=== PATIENT | female | born 1965 | race Caucasian/White ===

== ENCOUNTER 2020-05-23 13:54 | Emergency (ER) | payer OTHER ==
[~2020-05-23] VITALS: Ht 160 cm; Wt 81.6 kg
== END 2020-05-23 17:33 | disposition home or self-care (01) ==
LOC: ER 13:54
DX: M54.5 Low back pain (principal); M25.512 Pain in left shoulder

== ENCOUNTER 2021-02-09 15:31 | Emergency (ER) | payer OTHER ==
[~2021-02-09] VITALS: Ht 160 cm; Wt 83.9 kg
== END 2021-02-09 23:20 | disposition home or self-care (01) ==
LOC: ER 15:31
DX: K29.70 Gastritis, unspecified, without bleeding (principal); K52.9 Noninfective gastroenteritis and colitis, unspecified; E86.0 Dehydration

== ENCOUNTER 2021-12-20 07:37 | Emergency (ER) | payer OTHER ==
[~2021-12-20] VITALS: Ht 160 cm; Wt 81.6 kg
== END 2021-12-20 13:53 | disposition home or self-care (01) ==
LOC: ER 07:37
DX: J18.9 Pneumonia, unspecified organism (principal); R31.9 Hematuria, unspecified; N19 Unspecified kidney failure; D72.9 Disorder of white blood cells, unspecified; Z20.822 Contact with and (suspected) exposure to COVID-19

== ENCOUNTER 2022-01-03 13:53 | Emergency (ER) | payer OTHER ==
[~2022-01-03] VITALS: Ht 160 cm; Wt 81.6 kg
[2022-01-03] MEDS ORDERED: SIMETHICONE80 MG PO (14:35)
[2022-01-03] MEDS ORDERED: OSTERA TABLET1 EACH PO (14:35)
== END 2022-01-03 17:40 | disposition home or self-care (01) ==
LOC: ER 13:53
DX: R10.32 Left lower quadrant pain (principal); R31.9 Hematuria, unspecified

== ENCOUNTER 2022-04-05 13:21 | Emergency (ER) | payer OTHER ==
[~2022-04-05] VITALS: Ht 160 cm; Wt 81.6 kg
[~2022-04-05 13:21] MED LIST: OSTERA TABLET1 EACH PO; SIMETHICONE80 MG PO
[2022-04-05] MEDS ORDERED: ZOCOR80 MG PO (13:33)
== END 2022-04-05 18:08 | disposition home or self-care (01) ==
LOC: ER 13:21
DX: J06.9 Acute upper respiratory infection, unspecified (principal)

== ENCOUNTER 2022-06-29 11:37 | Emergency (ER) | payer OTHER ==
[~2022-06-29] VITALS: Ht 160 cm; Wt 81.6 kg
[~2022-06-29 11:37] MED LIST changes: +ZOCOR80 MG PO
== END 2022-06-29 17:18 | disposition home or self-care (01) ==
LOC: ER 11:37
DX: S99.921A Unspecified injury of right foot, initial encounter (principal); X58.XXXA Exposure to other specified factors, initial encounter; Y93.9 Activity, unspecified; Y92.9 Unspecified place or not applicable; Y99.9 Unspecified external cause status; M25.552 Pain in left hip; S79.912A Unspecified injury of left hip, initial encounter

== ENCOUNTER 2024-03-20 11:30 | Emergency (ER) | payer OTHER ==
[~2024-03-20] VITALS: Ht 160 cm; Wt 79.4 kg
[2024-03-20] MEDS ORDERED: 0.9 % SODIUM CHLORIDE 1,000 ML IV STA (12:35)
[2024-03-20] MEDS ORDERED: FAMOtidine 10 MG/ML (4ML VIAL) IV STA (12:38)
[2024-03-20 13:13] LABS: HEMATOCRIT 38.1 % (36.0-45.00); HEMOGLOBIN 12.8 g/dL (12.0-15.00); MEAN CELL VOLUME 86.8 fL (80.00-100.00); MEAN CORPUSCULAR HEMOGLOBIN 29.2 pg (27.00-32.0); MEAN CORPUSCULAR HGB CONC 33.6 g/dl (32.0-36.0); PLATELET COUNT 305 K/uL (150-450); RED BLOOD COUNT 4.39 M/uL (4.00-6.00); RED CELL DISTRIBUTION WIDTH 13.3 % (11.5-14.5)
[2024-03-20 13:37] LABS: ALBUMIN 3.8 gm/dL (3.4-5.0); BILIRUBIN TOTAL 0.43 mg/dL (0.3-1.2); BILIRUBIN,CONJUGATED 0.12 mg/dL (0.0-0.2); BILIRUBIN,UNCONJUGATED 0.31 mg/dL (0.0-0.6); CALCIUM 9.8 mg/dL (8.5-10.1); CREATININE SERUM 1.01 mg/dL (0.55-1.02); GFR 55.72; POTASSIUM 4.18 mEq/L (3.5-5.1); TOTAL PROTEIN 7.6 gm/dL (6.4-8.2)
[2024-03-20 14:07] LABS: PH,URINE 6.5 (5.0-8.0); URINE APPEARANCE Clear; URINE BILIRRUBIN Negative (NEGATIVE); URINE BLOOD Negative; URINE COLOR Yellow; URINE GLUCOSE Negative (NEGATIVE); URINE LEUKOCYTE Negative; URINE NITRATE Negative; URINE PROTEIN Negative (NEGATIVE); URINE UROBILINOGEN 0.2 E.U./dl
[2024-03-20 14:09] LABS: URINE EPITHELIAL CELLS 3.2 uL (0.0-38.8); URINE RBC 15.1 uL (0.0-20.8); URINE WBC 2.9 uL (0.0-23.2)
== END 2024-03-20 16:16 | disposition home or self-care (01) ==
LOC: ER 11:31
PROVIDERS: General Practice
DX: K29.70 Gastritis, unspecified, without bleeding (principal); R10.9 Unspecified abdominal pain

== ENCOUNTER 2025-07-25 12:16 | Emergency (ER) | payer OTHER ==
[~2025-07-25] VITALS: Ht 160 cm; Wt 77.1 kg
[2025-07-25] MEDS ORDERED: ORPHENADRINE CITRATE 30 MG/ML AMPUL IV STA (14:10)
[2025-07-25] MEDS ORDERED: DEXAMETHASONE 4 MG TABLET PO STA (14:10)
[2025-07-25] MEDS ORDERED: KETOROLAC TROMETHAMINE 30 MG VIAL IU STA (14:11)
[2025-07-25] MEDS ORDERED: ORPHENADRINE CITRATE 30 MG/ML AMPUL ONE (15:33)
[2025-07-25] MEDS ORDERED: KETOROLAC TROMETHAMINE 30 MG VIAL ONE (15:33)
[2025-07-25 16:29] LABS: URINE APPEARANCE Clear; URINE BILIRRUBIN Negative (NEGATIVE); URINE BLOOD Negative; URINE COLOR Yellow; URINE GLUCOSE Negative (NEGATIVE); URINE KETONE Negative (NEGATIVE); URINE LEUKOCYTE Trace; URINE NITRATE Negative; URINE PROTEIN Negative (NEGATIVE); URINE UROBILINOGEN 0.2 E.U./dl
[2025-07-25 16:34] LABS: BASO % 0.5 % (0.1-1.2); EOS # 0.10 (0.04-0.54); EOS % 1.3 % (0.7-7.0); LYMPH # 1.98 (1.18-3.74); LYMPH % 25.6 % (19.3-53.1); MEAN PLATELET VOLUME 10.10 fl (9.4-12.4); MONO # 0.52 (0.24-0.82); MONO % 6.7 % (4.7-12.5); NEUT # 5.08 (1.56-6.13); NEUT % 65.6 % (34.0-71.1); RED CELL DISTRIBUTION WIDTH 12.3 % (11.6-14.4)
[2025-07-25 16:34] LABS: URINE BACTERIA 21.5 uL (0.0-1933); URINE EPITHELIAL CELLS 11.0 uL (0.0-38.8); URINE RBC 5.4 uL (0.0-20.8); URINE WBC 5.3 uL (0.0-23.2)
[2025-07-25 17:06] LABS: INR 0.95
[2025-07-25 17:07] LABS: URINE CAST 0.00 uL (0.0-1.40)
[2025-07-25 17:12] LABS: D DIMER 0.21 MG/L
[2025-07-25 17:17] LABS: ALT/SGPT 26 U/L (12-78); AST/SGOT 13 U/L (15-37); BILIRUBIN TOTAL 0.32 mg/dL (0.3-1.2); BUN CREA RATIO 20 (7.0-25.0); CREATININE SERUM 0.89 mg/dL (0.55-1.02); GFR 64.27; GLOBULINA 3.7 G/DL (2.4-3.5); GLUCOSE FASTING 91 mg/dL (65-100); OSMOLALITY SERUM 285 MOSM/KG (275-295)
[2025-07-25] MEDS ORDERED: NORFLEX100MG PO (17:42)
[2025-07-25] MEDS ORDERED: MEDROLPACK PO (17:42)
== END 2025-07-25 17:59 | disposition home or self-care (01) ==
LOC: ER 12:16
PROVIDERS: Physician Assistant Medical
DX: M94.0 Chondrocostal junction syndrome [Tietze] (principal); E78.00 Pure hypercholesterolemia, unspecified